=== PATIENT | female | born 1995 | race American Indian/Alaskan Native ===

== ENCOUNTER 2018-08-28 15:30 | Outpatient (CLI) | payer MEDICAID ==
[2018-08-28] MEDS ORDERED: LACTATED RINGERS 500 ML IV ONE (15:32)
[2018-08-28 15:46] VITALS: BP 116/68
[2018-08-28 17:17] LABS: Bilirubin,Urine NEG (Negative); Blood,Urine NEG (Negative); Color,Urine Yellow (Yellow); Mucus,Urine FEW /HPF; Protein,Urine <15 mg/dL mg/dL (Negative); Urobilinogen,Urine < 2.0 mg/dL (<2.0)
== END 2018-08-28 18:00 | disposition home or self-care (01) ==
LOC: TRG 15:30
PROVIDERS: ATTEND Obstetrics & Gynecology
DX: O47.02 False labor before 37 completed weeks of gestation, second trimester (principal); Z3A.26 26 weeks gestation of pregnancy
CPT/HCPCS: 81001; 87086

== ENCOUNTER 2018-12-01 16:47 | Outpatient (CLI) | payer MEDICAID ==
[2018-12-01 20:22] VITALS: BP 138/71
== END 2018-12-01 21:08 | disposition home or self-care (01) ==
LOC: TRG 16:47
PROVIDERS: ATTEND Obstetrics & Gynecology
DX: O47.1 False labor at or after 37 completed weeks of gestation (principal); Z3A.40 40 weeks gestation of pregnancy
CPT/HCPCS: 59025

== ENCOUNTER 2018-12-02 11:24 | Inpatient (IN) | payer MEDICAID ==
[2018-12-02] MEDS ORDERED: PITOCin/NS 30 UNIT/500ML 30,000 MILLIUNITS/500 ML BAG IV ONE (11:41)
[2018-12-02] MEDS ORDERED: PHENERGAN PO PRN ×2 (12:46→19:51)
[2018-12-02] MEDS ORDERED: BRETHINE IVP PRN (12:46)
[2018-12-02] MEDS ORDERED: MINERAL OIL PO PRN (12:46)
[2018-12-02] MEDS ORDERED: ZOFRAN IV PRN ×2 (12:46→19:51)
[2018-12-02] MEDS ORDERED: NARCAN 0.4 MG/1 ML IV PRN (12:46)
[2018-12-02] MEDS ORDERED: BRETHINE SUB-Q PRN (12:46)
[2018-12-02] MEDS ORDERED: STADOL IV PRN (12:46)
[2018-12-02] MEDS ORDERED: NUBAIN IV PRN (12:46)
[2018-12-02] MEDS ORDERED: SUBLIMAZE IV PRN (12:46)
[2018-12-02] MEDS ORDERED: XYLOCAINE 2% INFILTRATI ONE ×2 (12:46→19:28)
[2018-12-02 12:57] LABS: Hematocrit 34.8 % (30.3-42.9); Hemoglobin 11.9 gm/dl (10.1-14.3); Mean Corpuscular HGB Conc 34 % (30-34); Mean Corpuscular Volume 87 fl (79-97); Platelet Count 263 K/mm3 (140-440); Red Cell Distribution Width 13.7 % (13.2-15.2)
[2018-12-02] MEDS ORDERED: PITOCin/NS 20 UNIT/1000ML DRIP 20 UNITS/1,000 ML BAG IV SCH ×2 (13:00→20:00)
[2018-12-02] MEDS ORDERED: PITOCin/NS 30 UNIT/500ML 30 UNITS/500 ML BAG IV SCH ×2 (13:00)
[2018-12-02] MEDS: LACTATED RINGERS 1,000 ML IV SCH ×2 (13:15→16:08)
[2018-12-02] MEDS ORDERED: MARCAINE 0.25% INFILTRATI ONE (15:11)
[2018-12-02] MEDS ORDERED: NARCAN 2 MG/2 ML IV PRN (15:35)
--- NOTE | 2018-12-02 15:35 | Anesthesia Consultation ---
Anesthesia Consult and Med Hx Date of service: 12/02/18 - Airway Anesthetic Teeth Evaluation: Good ROM Head & Neck: Adequate Mental/Hyoid Distance: Adequate Mallampati Class: Class II Intubation Access Assessment: Good - Pulmonary Exam CTA: Yes - Cardiac Exam Cardiac Exam: RRR - Pre-Operative Health Status ASA Pre-Surgery Classification: ASA2 Proposed Anesthetic Plan: Epidural - Pulmonary Hx Asthma: No COPD: No Hx Pneumonia: No - Cardiovascular System Hx Hypertension: No - Central Nervous System Hx Seizures: No Hx Psychiatric Problems: No - Endocrine Hx Renal Disease: No Hx End Stage Renal Disease: No Hx Hypothyroidism: No Hx Hyperthyroidism: No - Hematic Hx Anemia: No Hx Sickle Cell Disease: No - Other Systems Hx Alcohol Use: No
[2018-12-02] MEDS ORDERED: fentaNYL-BUPIV 2 MCG/ML-0.125% 200 MCG/100 ML BAG EPIDURAL SCH (16:00)
--- NOTE | 2018-12-02 17:12 | History and Physical Report ---
History of Present Illness Date of examination: 12/02/18 Date of admission: 12/02/18 11:24 Chief complaint: contractions and water broke History of present illness: This is a 23 yo EDC 11/30/18 here for contractions and srom. She was evaluated and noted to be grossly ruptured. She has a hx of baby asa for hx of GHTN. NIPT female. Patient is a patient of [facility] since 12 weeks. She is admitted in labor Past History Past Medical History: hypertension Past Surgical History: no surgical history Family/Genetic History: none Social history: single. denies: smoking, alcohol abuse, prescription drug abuse - Obstetrical History Expected Date of Delivery: 11/30/18 Actual Gestation: 40 Week(s) 2 Day(s) : 2 Para: 1 Hx # Term Pregnancies: 1 Number of Pregnancies: 0 Spontaneous Abortions: 0 Induced : 0 Number of Living Children: 1 Medications and Allergies Allergies Allergy/AdvReac Type Severity Reaction Status Date / Time No Known Allergies Allergy Verified 07/21/18 17:09 Active Meds: Active Medications Butorphanol Tartrate (Stadol) 2 mg IV Q2H PRN PRN Reason: Pain , Severe (7-10) Last Admin: 12/02/18 13:17 Dose: 2 mg Documented by: Ephedrine Sulfate (Ephedrine Sulfate) 10 mg IV Q2M PRN PRN Reason: Hypotension Fentanyl (Sublimaze) 100 mcg IV Q2H PRN PRN Reason: Labor Pain Oxytocin/Sodium Chloride (Pitocin/Ns 30 Unit/500ml) 30,000 milliunits in 500 mls @ 1 mls/hr IV DIRECT ONE; Protocol Stop: 12/23/18 07:40 Last Titration: 12/02/18 15:44 Dose: 0 milliunits/min, 0 mls/hr Documented by: Oxytocin/Sodium Chloride (Pitocin/Ns 20 Unit/1000ml Drip) 20 units in 1,000 mls @ 125 mls/hr IV DIRECT LOBO Oxytocin/Sodium Chloride (Pitocin/Ns 30 Unit/500ml) 30 units in 500 mls @ 1 ml s/hr IV TITR LOBO; Protocol Oxytocin/Sodium Chloride (Pitocin/Ns 30 Unit/500ml) 30 units in 500 mls @ 0 mls/hr IV TITR LOBO; Protocol Lactated Ringer's (Lactated Ringers) 1,000 mls @ 125 mls/hr IV DIRECT LOBO Last Admin: 12/02/18 16:08 Dose: 125 mls/hr Documented by: Fentanyl/Bupivacaine/Sodium Chlor (Fentanyl-Bupiv 2 Mcg/Ml-0.125%) 200 mcg in 100 mls @ 12 mls/hr EPIDURAL TITR LOBO; Protocol Last Admin: 12/02/18 16:10 Dose: 12 mls/hr Documented by: Mineral Oil (Mineral Oil) 30 ml PO QHS PRN PRN Reason: Constipation Nalbuphine HCl (Nubain) 10 mg IV Q2H PRN PRN Reason: Pain, Moderate (4-6) Naloxone HCl (Narcan 0.4 Mg/1 Ml) 0.1 mg IV Q2MIN PRN PRN Reason: Res Rate </= 8 or 02 SAT < 92% Naloxone HCl (Narcan 2 Mg/2 Ml) 0.2 mg IV Q5M PRN PRN Reason: Respiratory sedation Ondansetron HCl (Zofran) 4 mg IV Q8H PRN PRN Reason: Nausea And Vomiting Promethazine HCl (Phenergan) 25 mg PO Q6H PRN PRN Reason: Nausea And Vomiting Terbutaline Sulfate (Brethine) 0.25 mg SUB-Q ONCE PRN PRN Reason: Hyperstimulation/Hypertonicity Terbutaline Sulfate (Brethine) 0.25 mg IVP ONCE PRN PRN Reason: Hyperstimulation/Hypertonicity Review of Systems All systems: negative Genitourinary: leakage of fluid, contractions - Vital Signs Vital signs: Vital Signs Temp Resp 98.1 F 20 12/02/18 11:55 12/02/18 11:55 Temp Pulse Resp BP Pulse Ox 97.9 F 126 H 20 131/82 100 12/02/18 15:00 12/02/18 17:04 12/02/18 15:00 12/02/18 16:54 12/02/18 17:04 - Physical Exam Breasts: Positive: deferred Cardiovascular: Regular rate, Normal S1 Lungs: Positive: Clear to auscultation, Normal air movement Abdomen: Positive: normal appearance, soft, normal bowel sounds. Negative: distention, tenderness, guarding Genitourinary (Female): Positive: normal external genitalia, normal perenium Vulva: both: normal Vagina: Positive: normal moisture Uterus: Positive: normal size, enlarged Adnexa: both: normal Anus/Rectum: Positive: normal perianal skin Extremities: Positive: normal. Negative: tenderness - Obstetrical FHR: category 1 Cervical Dilatation: 8 Cervical Effacement Percentage: 90 station: -2 Uterine Contraction Pattern: Regular Results Result Diagrams: 12/02/18 12:35 All other labs normal. Assessment and Plan A/P IUP 40+2 weeks Term Active labor GBS neg s/p epidural IVF, labs expect vaginal delivery
[2018-12-02] MEDS ORDERED: CYTOTEC PR ONE (19:20)
[2018-12-02] MEDS ORDERED: METHERGINE IM ONE ×2 (19:20→19:23)
[2018-12-02] MEDS ORDERED: CYTOTEC ONE (19:25)
[2018-12-02] MEDS ORDERED: LANSINOH TP PRN (19:51)
[2018-12-02] MEDS ORDERED: MILK OF MAGNESIA PO PRN (19:51)
[2018-12-02] MEDS ORDERED: PERCOCET 5/325 PO PRN (19:51)
[2018-12-02] MEDS ORDERED: PHENERGAN PR PRN (19:51)
[2018-12-02] MEDS ORDERED: BENADRYL PO PRN (19:51)
[2018-12-02] MEDS ORDERED: TYLENOL PO PRN (19:51)
[2018-12-02] MEDS ORDERED: TUCKS PAD TP PRN (19:51)
[2018-12-02] MEDS ORDERED: DULCOLAX PR PRN (19:51)
[2018-12-02] MEDS ORDERED: TORADOL IV PRN (19:51)
--- NOTE | 2018-12-02 19:55 | Procedure Note ---
OB Delivery Note - Delivery Date of Delivery: 12/02/18 Surgeon: MARY BLANKENSHIP Estimated blood loss: 500cc - Vaginal Delivery presentation: vertex Delivery position: OA Delivery augmentation: pitocin Delivery monitor: external FHT, external uterine Route of delivery: Delivery placenta: spontaneous Delivery cord: 3 umbilical vessels Episiotomy: none Delivery laceration: 1st degree Delivery repair: vicryl Anesthesia: local, epidural Delivery comments: Patient was noted to be c/c/+1 commenced to pushing a pushed a viable female at 1913. The head was delivered and suction naso and oropharynx. The shoulders delivered easily. The cord was clamped and cut and placed baby on chest. The placenta delivered at 1914 intact with 3 vessel cord. Patient sustained EBL 500 cc and methergine and cytotec given for great hemostasis. Patient tolerated procedure well. repair of bilateral laceration in normal usual way of 2-0 and 3-0 vicryl. - Infant A at 1 minute: 8 at 5 minutes: 9 Infant Gender: Female (8 pounds 1 oz)
[2018-12-02] MEDS ORDERED: SODIUM CHLORIDE FLUSH SYRINGE 10 ML IV NR (20:00)
[2018-12-02] MEDS: IBUPROFEN PO SCH (21:08)
[2018-12-02] MEDS: SENOKOT S PO SCH (22:34)
[2018-12-02] MEDS: COLACE PO SCH (22:34)
[2018-12-02] MEDS: NORCO 5/325 PO PRN (22:35)
[2018-12-03] MEDS ORDERED: M-M-R II VACCINE SUB-Q ONE (06:00)
[2018-12-03] MEDS ORDERED: BOOSTRIX IM ONE (06:00)
[2018-12-03] MEDS: NORCO 5/325 PO PRN ×3 (06:03→21:40)
[2018-12-03] MEDS: IBUPROFEN PO SCH ×3 (06:10→18:37)
--- NOTE | 2018-12-03 08:03 | Progress Note ---
Assessment and Plan 1. day 1 2. Labs wnl. One elevated BP at 0416 today 3. Pain well controlled 4. Plan: 1. Continue current care 2. Reevaluate BP now 3. Consider D/C tomorrow Subjective - Subjective Date of service: 12/03/18 Principal diagnosis: day 1 Patient reports: appetite normal, voiding normally, pain well controlled : doing well () Objective - Vital Signs Latest vital signs: Vital Signs Temp Pulse Resp BP Pulse Ox 12/03/18 06:10 18 12/03/18 06:03 18 12/03/18 04:16 98.0 F 96 H 18 149/85 98 12/02/18 23:21 99.2 F 109 H 18 120/63 97 12/02/18 22:35 18 12/02/18 21:27 102.2 F H 104 H 20 144/77 98 12/02/18 20:36 98 H 98 12/02/18 20:31 103 H 99 12/02/18 20:26 104 H 99 12/02/18 20:25 107 H 0 L 12/02/18 20:24 111 H 124/85 12/02/18 20:12 120 H 94 12/02/18 20:07 112 H 99 12/02/18 19:59 112 H 73 L 12/02/18 19:54 109 H 129/63 12/02/18 19:46 122 H 96 12/02/18 19:41 119 H 99 12/02/18 19:36 113 H 99 12/02/18 19:31 113 H 100 12/02/18 19:25 119 H 100 12/02/18 19:24 125 H 119/59 12/02/18 19:22 120 H 129/81 12/02/18 19:21 121 H 100 12/02/18 19:16 121 H 100 12/02/18 19:14 71 76 L 12/02/18 19:10 120 H 100 12/02/18 19:04 107 H 100 12/02/18 19:00 115 H 100 12/02/18 18:55 101 H 148/79 12/02/18 18:54 110 H 100 12/02/18 18:50 103 H 100 12/02/18 18:44 110 H 100 12/02/18 18:40 112 H 141/74 100 12/02/18 18:34 105 H 100 06 18:29 107 H 100 12/02/18 18:26 111 H 140/79 06 18:25 124 H 100 06 18:19 93 H 100 06 18:15 96 H 100 12/02/18 18:10 90 135/63 06 18:09 98 H 100 12/02/18 18:04 104 H 100 12/02/18 17:59 100 H 100 12/02/18 17:56 115 H 127/56 12/02/18 17:54 114 H 100 12/02/18 17:49 96 H 100 12/02/18 17:44 111 H 100 12/02/18 17:39 107 H 150/92 100 12/02/18 17:34 118 H 100 12/02/18 17:29 112 H 100 12/02/18 17:25 104 H 134/80 12/02/18 17:24 109 H 100 12/02/18 17:19 100 H 100 12/02/18 17:14 100 H 100 12/02/18 17:09 114 H 145/88 100 12/02/18 17:04 126 H 100 12/02/18 16:59 99 H 100 12/02/18 16:54 108 H 131/82 100 12/02/18 16:49 99 H 100 12/02/18 16:44 94 H 100 12/02/18 16:39 97 H 125/71 100 12/02/18 16:34 99 H 100 12/02/18 16:29 105 H 100 12/02/18 16:24 107 H 100 12/02/18 16:23 99 H 123/64 12/02/18 16:19 90 120/65 100 12/02/18 16:14 98 H 134/68 100 12/02/18 16:09 109 H 100 12/02/18 16:07 81 130/60 12/02/18 16:06 96 H 126/61 12/02/18 16:04 94 H 144/64 100 12/02/18 16:01 114 H 129/64 12/02/18 15:59 110 H 136/68 100 12/02/18 15:58 111 H 124/65 12/02/18 15:56 112 H 114/63 06/04/19 15:54 111 H 100 12/02/18 15:53 106 H 132/77 12/02/18 15:52 100 H 137/79 12/02/18 15:50 112 H 125/72 12/02/18 15:49 111 H 100 12/02/18 15:48 89 144/82 12/02/18 15:44 92 H 100 12/02/18 15:43 77 97/53 12/02/18 15:41 75 96/51 12/02/18 15:39 97 H 98/52 100 12/02/18 15:37 99 H 107/55 12/02/18 15:35 108 H 111/57 12/02/18 15:34 103 H 100 12/02/18 15:33 96 H 111/59 12/02/18 15:31 104 H 114/60 12/02/18 15:30 102 H 120/63 12/02/18 15:29 102 H 100 12/02/18 15:27 97 H 135/71 12/02/18 15:25 95 H 138/67 12/02/18 15:24 98 H 100 12/02/18 15:23 87 147/76 12/02/18 15:22 86 142/75 12/02/18 15:19 91 H 99 12/02/18 15:14 56 L 76 L 12/02/18 15:00 97.9 F 20 12/02/18 14:44 80 133/76 12/02/18 14:15 96 H 144/85 12/02/18 13:45 96 H 130/73 12/02/18 13:17 20 12/02/18 12:10 106 H 134/73 12/02/18 11:55 98.1 F 20 Intake and Output 12/02/18 12/03/18 12/03/18 23:59 07:59 15:59 Intake Total 365.550 240 Output Total 1200 Balance 365.550 -960 Intake: IV 365.550 Lactated Ringers 1,000 ml 360.417 @ 125 mls/hr IV DIRECT LOBO Rx#:[id number] PITOCin/NS 30 UNIT/500ML 5.133 30,000 milliunits In 500 ml @ 1 MILLIUNITS/MIN 1 mls/hr IV DIRECT ONE Rx#:[id number] Oral 240 Output: Urine 1200 Void 1200 Other: Total, Intake Amount 240 Total, Output Amount 600 # Voids Void 1 Estimated Blood Loss 500 - Exam Breasts: Present: deferred Cardiovascular: Present: Regular rate, Normal S1, Normal S2, No murmurs Lungs: Present: Clear to auscultation, Normal air movement Abdomen: Present: normal appearance Uterus: Present: normal, firm, fundal height below umbilicus Extremities: Present: normal
[2018-12-03 09:15] LABS: Hematocrit 30.1 % (30.3-42.9); Hemoglobin 10.3 gm/dl (10.1-14.3)
[2018-12-03] MEDS: PRENATAL VITAMIN PO SCH (09:31)
[2018-12-03] MEDS: COLACE PO SCH ×2 (09:31→21:40)
[2018-12-03] MEDS: SENOKOT S PO SCH ×2 (09:34→21:40)
--- NOTE | 2018-12-03 20:05 | Post Anesthesia Evaluation ---
- Post Anesthesia Evaluation Patient Participated: Yes Airway Patent: Yes Stable Respiratory Function: Yes Nausea/Vomiting: No Temp > 96.8F: Yes Pain Manageable: Yes Adequeate Hydration: Yes Anesthesia Complications: No Block Receding Appropriately: Yes Patient on Ventilator: No
[2018-12-04] MEDS: IBUPROFEN PO SCH ×3 (04:45→12:06)
[2018-12-04] MEDS: NORCO 5/325 PO PRN (05:00)
--- NOTE | 2018-12-04 08:28 | Discharge Summary ---
Providers - Providers Date of Admission: 12/02/18 11:24 Date of discharge: 12/04/18 Attending physician: MARY BLANKENSHIP MD Primary care physician: MARY BLANKENSHIP MD Hospitalization Reason for admission: active labor, rupture of membranes Delivery: Episiotomy: none Laceration: 1st degree Other procedures: none complications: none Discharge diagnosis: IUP at term delivered Condition at discharge: Good Disposition: DC-01 TO HOME OR SELFCARE - Discharge Diagnoses (1) Normal vaginal delivery Status: Acute Plan - Discharge Medications Prescriptions: Ferrous Sulfate [Feosol 325 MG tab] 325 mg PO BID #30 tablet Ibuprofen [Motrin] 600 mg PO Q8H PRN #30 tablet PRN Reason: Pain oxyCODONE /ACETAMINOPHEN [Percocet 5/325] 1 tab PO Q6HR PRN #30 tablet PRN Reason: Pain - Provider Discharge Summary Activity: no sex for 6 weeks, no heavy lifting 4 weeks, no strenuous exercise Diet: routine Additional instructions: [] Smoking cessation referral if applicable(refer to patient education folder for contact #) [] Refer to [facility]'s [facility] Booklet Call your doctor immediately for: * Fever > 100.5 * Heavy vaginal bleeding ( >1 pad per hour) * Severe persistent headache * Shortness of breath * Reddened, hot, painful area to leg or breast * Drainage or odor from incision. * Keep incision clean and dry at all times and follow doctor's instructions regarding bathing/showering Call [place] [phone] to schedule blood pressure check in 1 week - Follow up plan Forms: [facility] Discharge Summary, Discharge Signature Page
--- NOTE | 2018-12-04 08:30 | Progress Note ---
Assessment and Plan 1. PPD2 s/p of viable 2. Recovering well, ok for discharge today Plan: Discharge today. Follow up with [facility] in 1 week for BP check ant 4 weeks for pp visit - Patient Problems (1) Normal vaginal delivery Current Visit: Yes Status: Acute Subjective - Subjective Date of service: 12/04/18 Principal diagnosis: day 2 Patient reports: appetite normal, voiding normally, pain well controlled, bowel movement, ambulating normally [place]: doing well Objective - Vital Signs Latest vital signs: Vital Signs Temp Pulse Resp BP Pulse Ox 12/04/18 08:05 97.8 F 87 18 137/82 12/04/18 00:30 98.3 F 68 20 128/73 98 12/03/18 15:56 98.1 F 106 H 18 136/73 98 12/03/18 12:57 97.9 F 90 18 132/83 99 Intake and Output 12/03/18 12/04/18 12/04/18 23:59 07:59 15:59 Intake Total 1160 240 360 Balance 1160 240 360 Intake: Oral 1160 240 360 Other: Total, Intake Amount 360 240 360 Voiding Method Toilet # Voids Void 1 1 # Bowel Movements 1 - Exam Breasts: Present: deferred Cardiovascular: Present: Regular rate, Normal S1, Normal S2, No murmurs Lungs: Present: Clear to auscultation, Normal air movement Abdomen: Present: normal appearance, soft Uterus: Present: normal, firm, fundal height below umbilicus Extremities: Present: normal - Labs Labs: Abnormal lab results 12/03/18 Range/Units 08:43 Hct 30.1 L (30.3-42.9) %
[2018-12-04] MEDS: COLACE PO SCH (10:56)
[2018-12-04] MEDS: PRENATAL VITAMIN PO SCH (10:56)
[2018-12-04] MEDS: SENOKOT S PO SCH (10:56)
[2018-12-04 18:09] VITALS: BP 149/85
== END 2018-12-04 18:30 | disposition home or self-care (01) | DRG 775 ==
LOC: LD 11:24 → OB 21:50
PROVIDERS: ADMIT Obstetrics & Gynecology; ATTEND Obstetrics & Gynecology
PROC: 10E0XZZ Delivery of Products of Conception, External Approach (ICD-10-PCS; principal; 2018-12-02)
PROC: 0HQ9XZZ Repair Perineum Skin, External Approach (ICD-10-PCS; 2018-12-02)
PROC: 3E0R3BZ Introduction of Anesthetic Agent into Spinal Canal, Percutaneous Approach (ICD-10-PCS; 2018-12-02)
PROC: 00HU33Z Insertion of Infusion Device into Spinal Canal, Percutaneous Approach (ICD-10-PCS; 2018-12-02)
PROC: 3E0234Z Introduction of Serum, Toxoid and Vaccine into Muscle, Percutaneous Approach (ICD-10-PCS; 2018-12-03)
DX: O70.0 First degree perineal laceration during delivery (principal); Z3A.40 40 weeks gestation of pregnancy; Z37.0 Single live birth; Z23 Encounter for immunization
CPT/HCPCS: 36415; 59025; 85014; 85018; 85027; 86592; 86850; 86900; 86901; 90471; 90715; G0378; J0595; J2210; J2590; J3010; J7120

== ENCOUNTER 2019-03-17 08:53 | Day surgery (SDC) | payer MEDICAID ==
[2019-03-17] MEDS ORDERED: LACTATED RINGERS 1,000 ML IV SCH (09:16)
[2019-03-17] MEDS ORDERED: ZOFRAN IV PRN (09:29)
[2019-03-17] MEDS ORDERED: SUBLIMAZE IV PRN (09:29)
--- NOTE | 2019-03-17 09:33 | Anesthesia Day of Surgery ---
Anesthesia Day of Surgery - Day of Surgery Patient Examined: Yes Patient H&P Reviewed: Yes Patient is NPO: Yes
--- NOTE | 2019-03-17 09:34 | Anesthesia Consultation ---
Anesthesia Consult and Med Hx Date of service: 03/17/19 - Airway Anesthetic Teeth Evaluation: Good ROM Head & Neck: Adequate Mental/Hyoid Distance: Adequate Mallampati Class: Class II Intubation Access Assessment: Good - Pre-Operative Health Status ASA Pre-Surgery Classification: ASA1 Proposed Anesthetic Plan: General - Central Nervous System Hx Psychiatric Problems: No - Other Systems Hx Cancer: No
[2019-03-17] MEDS ORDERED: VERSED ONE (11:29)
[2019-03-17] MEDS ORDERED: XYLOCAINE MPF 2% ONE (11:29)
[2019-03-17] MEDS ORDERED: SUBLIMAZE ONE (11:29)
[2019-03-17] MEDS ORDERED: DIPRIVAN 10 MG/ML IV ONE (11:30)
[2019-03-17] MEDS ORDERED: SILVER NITRATE TP ONE (11:38)
[2019-03-17] MEDS ORDERED: METHERGINE IM ONE ×2 (11:38→12:17)
[2019-03-17 12:11] LABS: Basophils % (Auto) 0.5 % (0.0-1.8); Eosinophils % (Auto) 0.7 % (0.0-4.3); Hematocrit 37.8 % (30.3-42.9); Hemoglobin 12.6 gm/dl (10.1-14.3); Lymphocytes # (Auto) 1.5 K/mm3 (1.2-5.4); Mean Corpuscular HGB Conc 33 % (30-34); Mean Corpuscular Volume 85 fl (79-97); Monocytes # (Auto) 0.4 K/mm3 (0.0-0.8); Platelet Count 294 K/mm3 (140-440); Red Blood Count 4.44 M/mm3 (3.65-5.03); Red Cell Distribution Width 14.5 % (13.2-15.2)
[2019-03-17] MEDS ORDERED: ZOFRAN ONE (12:12)
[2019-03-17] MEDS ORDERED: TORADOL ONE (12:12)
[2019-03-17] MEDS ORDERED: DECADRON ONE (12:12)
[2019-03-17] MEDS ORDERED: REGLAN ONE (12:12)
[2019-03-17] MEDS ORDERED: NACL 0.9% IR ONE (12:14)
--- NOTE | 2019-03-17 12:29 | Operative Report ---
Operative Report Operative Report: Date:03/17/19 PREOPERATIVE DIAGNOSIS: Missed . POSTOPERATIVE DIAGNOSIS: Missed . PROCEDURE PERFORMED: Suction, dilation, and curettage. ANESTHESIA: General ESTIMATED BLOOD LOSS: 50 mL. COMPLICATIONS: None. FINDINGS: Products of conception consistent with a 6-week intrauterine . INDICATIONS: The patient is a 24-year-old 3, para 2 female at 6 weeks by her last menstrual period and 6 weeks by an ultrasound previously saw no cardiac activity. Patietn had 2 previous US without FHT. patient counseled and desired dilatation and currettage Additionally, the cervix was noted to be 1 cm dilated. These findings were discussed with the patient and options including surgical management via dilation and curettage versus management with misoprostol versus expected management were discussed with the patient. After discussion of these options, the patient opted for a suction, dilation, and curettage. The patient was described to the patient in detail including risks of infection, bleeding, injury to surrounding organs including risk of perforation. Informed consent was obtained prior to proceeding with the procedure. PROCEDURE NOTE: The patient was taken to the operating room where spinal anesthesia was administered without difficulty. The patient was prepped and draped in usual sterile fashion in lithotomy position. A weighted speculum was placed. The anterior lip of the cervix was grasped with a single tooth tenaculum. At this time, a 7-mm suction curettage was advanced into the uterine cavity without difficulty and was used to suction contents of the uterus. Following removal of the products of conception, a sharp curette was advanced into the uterine cavity and was used to scrape the four charles of the uterus until a gritty texture was noted. At this time, the suction curette was advanced one additional time to suction any remaining products. All instruments were removed. Hemostasis was visualized. The patient was stable at the completion of the procedure. Sponge, lap, and instrument counts were correct.
[2019-03-17] MEDS ORDERED: PERCOCET 5/325 PO PRN (13:21)
--- NOTE | 2019-03-17 13:30 | Post Anesthesia Evaluation ---
- Post Anesthesia Evaluation Patient Participated: Yes Airway Patent: Yes Stable Respiratory Function: Yes Nausea/Vomiting: No Temp > 96.8F: Yes Pain Manageable: Yes Adequeate Hydration: Yes Anesthesia Complications: No Block Receding Appropriately: Not Applicable Patient on Ventilator: No
[2019-03-17 14:24] VITALS: BP 122/59
== END 2019-03-17 08:54 | disposition home or self-care (01) ==
LOC: OR 08:53
PROVIDERS: ATTEND Obstetrics & Gynecology
DX: O02.1 Missed abortion (principal); Z79.899 Other long term (current) drug therapy; Z98.890 Other specified postprocedural states; Z83.3 Family history of diabetes mellitus; Z82.49 Family history of ischemic heart disease and other diseases of the circulatory system
CPT/HCPCS: 36415; 59820; 85025; 86850; 86900; 86901; 88305; J1100; J1885; J2210; J2250; J2405; J2704; J2765; J3010; J7120

== ENCOUNTER 2021-05-01 10:33 | Emergency (ER) | payer MEDICAID ==
--- NOTE | 2021-05-01 13:39 | Emergency Department Report ---
ED HPI - General Chief complaint: Vaginal Bleeding Stated complaint: 7WKS /BLEEDING/CRAMPING Time Seen by Provider: 05/01/21 13:16 Source: patient Mode of arrival: Ambulatory Limitations: No Limitations - History of Present Illness Initial comments: The patient was evaluated in the emergency department for symptoms described in the history of present illness. He/she was evaluated in the context of the global COVID-19 pandemic, which necessitated consideration that the patient might be at risk for infection with the virus that causes COVID-19. Institutional protocols and algorithms that pertain to the evaluation of patients at risk for COVID-19 are in a state of rapid change based on information released by regulatory bodies including the CDC and federal and state organizations. These policies and algorithms were followed during the patient's care in the emergency department. Please note that these policies, procedures and recommendations changed on a rapid basis. 26-year-old -[place] female who is approximately 7 weeks presents to the emergency room for vaginal spotting that happened last night at 8 PM. She reports some mild cramping. She is 5 para 2 with 2 miscarriages. Her last menstrual period was 03/13/2021. She has not had an ultrasound done. She states that she has gone through 1 pad with 1 little clot. She denies any complications with her last she did have a miscarriage at 10 weeks after having her 2-year-old. Complaint: vaginal bleeding Onset/Timin -: days(s) Radiation: back Severity: mild Severity scale (0 -10): 3 Quality: cramping Consistency: intermittent Improves with: none Worsens with: none - Related Data Previous Rx's Medication Instructions Recorded Last Taken Type Ibuprofen [Motrin] 600 mg PO Q8H PRN #30 tablet 03/17/19 Unknown Rx oxyCODONE /ACETAMINOPHEN [Percocet 1 tab PO Q6HR PRN #20 tablet 03/17/19 Unknown Rx 5/325] Vit-Fe Fumar-FA [ 1 tab PO QDAY #90 tablet 05/01/21 Unknown Rx Vitamin] Allergies Allergy/AdvReac Type Severity Reaction Status Date / Time No Known Allergies Allergy Verified 03/16/19 14:24 ED Review of Systems ROS: Stated complaint: 7WKS /BLEEDING/CRAMPING Other details as noted in HPI ED Past Medical Hx - Past Medical History Previous Medical History?: No - Surgical History Past Surgical History?: Yes Additional Surgical History: d&c 2019 - Social History Smoking Status: Never Smoker - Medications Home Medications: Home Medications Medication Instructions Recorded Confirmed Last Taken Type Ibuprofen [Motrin] 600 mg PO Q8H PRN #30 tablet 03/17/19 Unknown Rx oxyCODONE /ACETAMINOPHEN [Percocet 1 tab PO Q6HR PRN #20 tablet 03/17/19 Unknown Rx 5/325] Vit-Fe Fumar-FA [ 1 tab PO QDAY #90 tablet 05/01/21 Unknown Rx Vitamin] ED Physical Exam - General Limitations: No Limitations General appearance: alert, in no apparent distress - Head Head exam: Present: atraumatic, normocephalic - Eye Eye exam: Present: normal appearance - ENT ENT exam: Present: mucous membranes moist - Neck Neck exam: Present: normal inspection - Respiratory Respiratory exam: Present: normal lung sounds bilaterally. Absent: respiratory distress - Cardiovascular Cardiovascular Exam: Present: regular rate, normal rhythm. Absent: systolic murmur, diastolic murmur, rubs, gallop - GI/Abdominal GI/Abdominal exam: Present: soft, normal bowel sounds - Extremities Exam Extremities exam: Present: normal inspection - Back Exam Back exam: Present: normal inspection - Neurological Exam Neurological exam: Present: alert, oriented X3 - Psychiatric Psychiatric exam: Present: normal affect, normal mood - Skin Skin exam: Present: warm, dry, intact, normal color. Absent: rash ED Course Vital Signs 05/01/21 13:05 Temperature 98.6 F Pulse Rate 104 H Respiratory 18 Rate Blood Pressure 152/82 O2 Sat by Pulse 98 Oximetry ED Medical Decision Making - Lab Data Result diagrams: 05/01/21 13:32 05/01/21 13:32 Laboratory Tests 05/01/21 05/01/21 05/01/21 13:32 13:32 13:32 WBC 5.4 RBC 4.26 Hgb 13.1 Hct 37.9 MCV 89 MCH 31 MCHC 35 H RDW 12.8 L Plt Count 289 Lymph % (Auto) 30.4 [place] % (Auto) 5.8 Eos % (Auto) 0.3 Baso % (Auto) 0.6 Lymph # (Auto) 1.6 [place] # (Auto) 0.3 Eos # (Auto) 0.0 Baso # (Auto) 0.0 Seg Neutrophils % 62.9 Seg Neutrophils # 3.4 Sodium 138 Potassium 4.0 Chloride 102.2 Carbon Dioxide 23 Anion Gap 17 BUN 14 Creatinine 0.6 Estimated GFR > 60 BUN/Creatinine Ratio 23 Glucose 82 Calcium 8.8 Total Bilirubin 0.30 AST 17 ALT 23 Alkaline Phosphatase 99 Total Protein 8.1 Albumin 4.0 Albumin/Globulin Ratio 1.0 HCG, Quant 425.5 H Urine Color Urine Turbidity Urine pH Ur Specific [place] Urine Protein Urine Glucose (UA) Urine Ketones Urine Blood Urine Nitrite Urine Bilirubin Urine Urobilinogen Ur Leukocyte Esterase Urine WBC (Auto) Urine RBC (Auto) U Epithel Cells (Auto) Urine Bacteria (Auto) Urine Mucus Blood Type Gest05/01/21 05/01/21 15:00 Unknown WBC RBC Hgb Hct MCV MCH MCHC RDW Plt Count Lymph % (Auto) [place] % (Auto) Eos % (Auto) Baso % (Auto) Lymph # (Auto) [place] # (Auto) Eos # (Auto) Baso # (Auto) Seg Neutrophils % Seg Neutrophils # Sodium Potassium Chloride Carbon Dioxide Anion Gap BUN Creatinine Estimated GFR BUN/Creatinine Ratio Glucose Calcium Total Bilirubin AST ALT Alkaline Phosphatase Total Protein Albumin Albumin/Globulin Ratio HCG, Quant Urine Color Yellow Urine Turbidity Clear Urine pH 6.0 Ur Specific [place] 1.028 Urine Protein 30 mg/dl Urine Glucose (UA) Neg Urine Ketones 20 Urine Blood Lg Urine Nitrite Neg Urine Bilirubin Neg Urine Urobilinogen < 2.0 Ur Leukocyte Esterase Neg Urine WBC (Auto) 3.0 Urine RBC (Auto) 34.0 U Epithel Cells (Auto) 5.0 Urine Bacteria (Auto) 1+ Urine Mucus 3+ Blood Type A POSITIVE Ord pos - Radiology Data Radiology results: report reviewed [facility] [address] [place] [address] Ultrasound Report Signed Patient: FRANCINE MONROE MR #: [id number] : 1995 Acct:[id number] Age/Sex: 26 / F ADM Date: 05/01/21 Loc: ED Attending Dr: Ordering Physician: ABHIJIT NORTON Date of Service: 05/01/21 Procedure(s): US OB transvaginal Accession Number(s): [id number] cc: ABHIJIT NORTON ULTRASOUND OB TRANSVAGINAL HISTORY: Vaginal cramping and spotting COMPARISON: None. TECHNIQUE: Routine transvaginal OB ultrasound performed. FINDINGS: Uterus: The uterus is retroflexed and measures 9.1 x 5.0 x 5.6 cm. Gestational Sac: Not seen Yolk Sac: Not seen Fetus/Embryo: Not seen Endometrium: The endometrium appears mildly thickened and heterogeneous measuring 1.2 cm. Ovaries: The right ovary is normal in size and appearance with normal blood flow, measuring 4.4 x 0.9 x 2.9 cm. The left ovary is normal in size and appearance with normal blood flow, measuring 3.4 x 1.4 x 1.9 cm. No obvious adnexal lesion. Additional findings: None. IMPRESSION No intrauterine is visualized on transvaginal exam. The endometrium is mildly thickened and complex measuring 1.2 cm. This could represent a very early nonvisualized . Spontaneous with mild retained products could also be considered. Please note that an ectopic is not entirely excluded on this exam. Please correlate with the patient's clinical presentation and laboratory values. Signer Name: Randal Shultz Jr, MD Signed: 05/01/2021 3:16 PM Workstation Name: [id number] Transcribed By: TTR Dictated By: RANDAL SHULTZ JR, MD Electronically Authenticated By: RANDAL SHULTZ JR, MD Signed Date/Time: 05/01/211515 DD/ 11 TD/TT: - Medical Decision Making 26-year-old -[place] female who is approximately 7 weeks presents to the emergency room for vaginal spotting that happened last night at 8 PM. She reports some mild cramping. She is 5 para 2 with 2 miscarriages. Her last menstrual period was 03/13/2021. She has not had an ultrasound done. She states that she has gone through 1 pad with 1 little clot. She denies any complications with her last she did have a miscarriage at 10 weeks after having her 2-year-old. CBC CMP hCG serum urinalysis ultrasound less than 14 weeks and ED RhoGam Critical care attestation.: If time is entered above; I have spent that time in minutes in the direct care of this critically ill patient, excluding procedure time. ED Disposition Clinical Impression: Threatened miscarriage in early Disposition: HOME / SELF CARE / HOMELESS Is pt being admited?: No Does the pt Need Aspirin: No Condition: Stable Instructions: Threatened Miscarriage, [id number] Additional Instructions: Ultrasound shows no intrauterine gestation as it may be too early into your . I do recommend that you repeat hCG in 3 days. Also recommend follow-up with your [facility]. Urinalysis is negative for any urinary tract infection. I want you to take your vitamins increase your fluid and take. Prescriptions: Vit-Fe Fumar-FA [ Vitamin] 1 tab PO QDAY #90 tablet Referrals: ARJUN ROMO NP [Primary Care Provider] - 3-5 Days [facility] [Provider Group] - 3-5 Days Forms: Work/School Release Form(ED) Time of Disposition: 17:10
[2021-05-01 13:55] LABS: Basophils % (Auto) 0.6 % (0.0-1.8); Eosinophils % (Auto) 0.3 % (0.0-4.3); Hematocrit 37.9 % (30.3-42.9); Hemoglobin 13.1 gm/dl (10.1-14.3); Lymphocytes # (Auto) 1.6 K/mm3 (1.2-5.4); Lymphocytes % (Auto) 30.4 % (13.4-35.0); Mean Corpuscular HGB Conc 35 % (30-34); Mean Corpuscular Volume 89 fl (79-97); Monocytes # (Auto) 0.3 K/mm3 (0.0-0.8); Monocytes % (Auto) 5.8 % (0.0-7.3); Platelet Count 289 K/mm3 (140-440); Red Blood Count 4.26 M/mm3 (3.65-5.03); Red Cell Distribution Width 12.8 % (13.2-15.2)
[2021-05-01 14:13] LABS: Alanine Aminotransferase 23 units/L (7-56); Blood Urea Nitrogen 14 mg/dL (7-17); Calcium 8.8 mg/dL (8.4-10.2); Hemolysis Index 9
[2021-05-01 14:29] LABS: BUN/Creatinine Ratio 23
--- NOTE | 2021-05-01 15:20 | Ultrasound Report ---
ULTRASOUND OB TRANSVAGINAL HISTORY: Vaginal cramping and spotting COMPARISON: None. TECHNIQUE: Routine transvaginal OB ultrasound performed. FINDINGS: Uterus: The uterus is retroflexed and measures 9.1 x 5.0 x 5.6 cm. Gestational Sac: Not seen Yolk Sac: Not seen Fetus/Embryo: Not seen Endometrium: The endometrium appears mildly thickened and heterogeneous measuring 1.2 cm. Ovaries: The right ovary is normal in size and appearance with normal blood flow, measuring 4.4 x 0. 9 x 2.9 cm. The left ovary is normal in size and appearance with normal blood flow, measuring 3.4 x 1.4 x 1.9 cm. No obvious adnexal lesion. Additional findings: None. IMPRESSION No intrauterine is visualized on transvaginal exam. The endometrium is mildly thickened and complex measuring 1.2 cm. This could represent a very early nonvisualized . Spontaneous abo rtion with mild retained products could also be considered. Please note that an ectopic is not entirely excluded on this exam. Please correlate with the patient's clinical presentation and lab oratory values. Signer Name: Randal Shultz Jr, MD Signed: 05/01/2021 3:16 PM Workstation Name: [id number]
[2021-05-01 16:30] LABS: Bacteria,Urine 1+ /HPF (Negative); Bilirubin,Urine NEG (Negative); Blood,Urine LG (Negative); Color,Urine Yellow (Yellow); Mucus,Urine 3+ /HPF; Urobilinogen,Urine < 2.0 mg/dL (<2.0)
[2021-05-01 17:29] VITALS: BP 139/83
== END 2021-05-01 17:29 | disposition home or self-care (01) ==
LOC: ED 10:33
DX: O20.0 Threatened abortion (principal); Z3A.01 Less than 8 weeks gestation of pregnancy
CPT/HCPCS: 36415; 76801; 76817; 80053; 81001; 84702; 85025; 86900; 86901

== ENCOUNTER 2022-03-03 10:11 | Inpatient (IN) | payer MEDICAID ==
[2022-03-03] MEDS ORDERED: OXYTOCIN 10 UNIT/1 ML INJ IM PRN (12:04)
[2022-03-03] MEDS ORDERED: CARBOPROST TROMETHAMINE 250 MCG/1 ML INJ IM PRN (12:04)
[2022-03-03] MEDS ORDERED: LIDOCAINE (2%) 20 MG/1 ML VIAL 20 ML MDV INFILTRATI ONE (12:04)
[2022-03-03] MEDS ORDERED: miSOPROStol 200 MCG TAB PR PRN (12:04)
[2022-03-03] MEDS ORDERED: ePHEDrine SULFATE 50 MG/1 ML INJ IV PRN ×2 (12:04→16:23)
[2022-03-03] MEDS ORDERED: LOPERAMIDE 2 MG CAP PO PRN (12:04)
[2022-03-03] MEDS ORDERED: MINERAL OIL 30 ML ORAL LIQD PO PRN (12:04)
[2022-03-03] MEDS ORDERED: TERBUTALINE 1 MG/1 ML INJ SUB-Q PRN (12:04)
[2022-03-03] MEDS ORDERED: METHYLERGONOVINE MALEATE 0.2 MG/ML VIAL IM PRN (12:04)
[2022-03-03] MEDS ORDERED: fentaNYL 100 MCG/2 ML INJ IV PRN (12:08)
[2022-03-03] MEDS ORDERED: BUTORPHANOL 2 MG/1 ML INJ IV PRN (12:08)
[2022-03-03] MEDS ORDERED: ACETAMINOPHEN 325 MG TAB PO PRN ×2 (12:08→20:45)
[2022-03-03] MEDS ORDERED: ONDANSETRON 4 MG/2 ML INJ IV PRN ×2 (12:08→20:45)
[2022-03-03] MEDS ORDERED: LACTATED RINGERS 1,000 ML IV SCH (12:15)
[2022-03-03 12:20] LABS: Basophils % (Auto) 0.5 % (0.0-1.8); Eosinophils # (Auto) 0.1 K/mm3 (0.0-0.4); Eosinophils % (Auto) 0.7 % (0.0-4.3); Hematocrit 31.9 % (30.3-42.9); Hemoglobin 10.5 gm/dl (10.1-14.3); Lymphocytes # (Auto) 1.4 K/mm3 (1.2-5.4); Lymphocytes % (Auto) 18.7 % (13.4-35.0); Mean Corpuscular HGB Conc 33 % (30-34); Mean Corpuscular Volume 84 fl (79-97); Monocytes # (Auto) 0.6 K/mm3 (0.0-0.8); Platelet Count 323 K/mm3 (140-440); Red Blood Count 3.78 M/mm3 (3.65-5.03); Red Cell Distribution Width 14.7 % (13.2-15.2)
[2022-03-03] MEDS: OXYTOCIN DRIP 30 UNITS/500 ML BAG IV SCH ×4 (12:40→21:02)
[2022-03-03] MEDS ORDERED: OXYTOCIN DRIP 30 UNITS/500 ML BAG IV SCH (13:00)
[2022-03-03] MEDS ORDERED: fentaNYL-BUPIV 2 MCG/ML-0.125% 200 MCG/100 ML BAG EPIDURAL SCH (16:23)
[2022-03-03] MEDS ORDERED: NALOXONE 0.4 MG/1 ML INJ IV PRN (16:23)
--- NOTE | 2022-03-03 16:24 | Anesthesia Consultation ---
Anesthesia Consult and Med Hx Date of service: 03/03/22 - Airway Anesthetic Teeth Evaluation: Good ROM Head & Neck: Adequate Mental/Hyoid Distance: Adequate Mallampati Class: Class II Intubation Access Assessment: Probably Good - Pulmonary Exam CTA: Yes - Cardiac Exam Cardiac Exam: RRR - Pre-Operative Health Status ASA Pre-Surgery Classification: ASA2 Proposed Anesthetic Plan: Epidural - Pulmonary Hx Smoking: No Hx Asthma: No Hx Respiratory Symptoms: No SOB: No COPD: No Home Oxygen Therapy: No Hx Pneumonia: No Hx Sleep Apnea: No - Cardiovascular System Hx Hypertension: No Hx Coronary Artery Disease: No Hx Heart Attack/AMI: No Hx Angina: No Hx Percutaneous Transluminal Coronary Angioplasty (PTCA): No Hx Cardia Arrhythmia: No Hx Pacemaker: No Hx Internal Defibrillator: No Hx Valvular Heart Disease: No Hx Heart Murmur: No Hx Peripheral Vascular Disease: No - Central Nervous System Hx Neuromuscular Disorder: No Hx Seizures: No CVA: No Hx Back Pain: No Hx Psychiatric Problems: No - Gastrointestinal Hx Ulcer: No Hx Gastroesophageal Reflux Disease: No - Endocrine Hx Renal Disease: No Hx End Stage Renal Disease: No Hx Cirrhosis: No Hx Liver Disease: No Hx Insulin Dependent Diabetes: No Hx Non-Insulin Dependent Diabetes: No Hx Thyroid Disease: No Hx Hypothyroidism: No Hx Hyperthyroidism: No - Hematic Hx Anemia: No Hx Sickle Cell Disease: No - Other Systems Hx Alcohol Use: No Hx Substance Use: No Hx Cancer: No Hx Obesity: Yes
--- NOTE | 2022-03-03 16:25 | Anesthesia Day of Surgery ---
Anesthesia Day of Surgery - Day of Surgery Patient Examined: Yes Patient H&P Reviewed: Yes Patient is NPO: Yes Beta Blockers: No Cardiac Clearance: No Pulmonary Clearance: No Mukesh's Test: N/A
--- NOTE | 2022-03-03 17:01 | Progress Note ---
Labor Epidural - Labor Epidural Start Time: 16:06 Stop Time: 16:10 Performed by:: DAE GERARD Procedure: Epidural Requested for Labor Pain. H&P and PT Chart reviewed and consent obtained. Time out performed and the procedure was explained, all questions answered. Patient was placed in a sitting position with monitors applied. The PTs back was prepped and draped in usual sterile fashion. The Skin was localized with 3 mL of 1% lidocaine at L3-L4. A 17-gauge Touhy epidural needle was advanced to SUSAN with saline at 7 cm and no blood/CSF was noted via epidural needle. Epidural catheter was advanced to 12 cm. There was negative aspiration for blood and CSF in the catheter and negative response to a test dose of 3 ml 1.5% lidocaine w/ Epi and a sterile dressing was applied Patient tolerated the procedure well and there were no immediate complications noted.
[2022-03-03] MEDS ORDERED: BUPIVACAINE/PF (0.5%) 5 MG/1 ML 10 ML VIAL INFILTRATI ONE (18:12)
--- NOTE | 2022-03-03 20:44 | Procedure Note ---
OB Delivery Note - Delivery Date of Delivery: 03/03/22 Surgeon: MAIDA REYNAGA Estimated blood loss: 300cc - Vaginal Delivery presentation: vertex Delivery position: OA Intrapartum events: none Delivery monitor: external FHT, external uterine Route of delivery: Delivery placenta: spontaneous Delivery cord: 3 umbilical vessels Episiotomy: none Delivery laceration: none Anesthesia: none - A at 1 minute: 8 at 5 minutes: 9 Infant Gender: Female (Weight 8 pounds 7 ounces)
--- NOTE | 2022-03-03 20:44 | History and Physical Report ---
History of Present Illness Date of examination: 03/03/22 Date of admission: 03/03/22 12:04 Chief complaint: Leakage of fluid History of present illness: 27-year-old -0-3-2 at 39+3 weeks who presents to labor and delivery in active labor with leakage of fluid. The patient initiated her care in the first trimester of her however she had insufficient care with lapse of care from 26 to 35 weeks and then from 36 weeks at 39 weeks. Her GBS is negative. Past History Past Medical History: no pertinent history Past Surgical History: D&C Social history: single - Obstetrical History Expected Date of Delivery: 03/07/22 Actual Gestation: 39 Week(s) 3 Day(s) : 6 Para: 2 Hx # Term Pregnancies: 2 Number of Pregnancies: 0 Spontaneous Abortions: 2 Induced : 1 Number of Living Children: 2 Medications and Allergies Allergies Allergy/AdvReac Type Severity Reaction Status Date / Time No Known Allergies Allergy Verified 03/16/19 14:24 Home Medications Medication Instructions Recorded Confirmed Last Taken Type Ibuprofen [Motrin] 600 mg PO Q8H PRN #30 tablet 03/17/19 Unknown Rx oxyCODONE /ACETAMINOPHEN [Percocet 1 tab PO Q6HR PRN #20 tablet 03/17/19 Unknown Rx 5/325] Vit-Fe Fumar-FA [ 1 tab PO QDAY #90 tablet 05/01/21 Unknown Rx Vitamin] Active Meds: Active Medications Acetaminophen (Acetaminophen 325 Mg Tab) 650 mg PO Q4H PRN PRN Reason: Pain, Mild (1-3) Butorphanol Tartrate (Butorphanol 2 Mg/1 Ml Inj) 1 mg IV Q2H PRN PRN Reason: Pain, Moderate(4-6) LABOR PAIN Carboprost Tromethamine (Carboprost Tromethamine 250 Mcg/1 Ml Inj) 250 mcg IM ONCE PRN PRN Reason: Uterine Bleeding Ephedrine Sulfate (Ephedrine Sulfate 50 Mg/1 Ml Inj) 10 mg IV Q2M PRN PRN Reason: Hypotension Last Admin: 03/03/22 16:30 Dose: 10 mg Fentanyl (Fentanyl 100 Mcg/2 Ml Inj) 100 mcg IV Q2H PRN PRN Reason: Pain,Severe (7-10) LABOR PAIN Last Admin: 03/03/22 14:18 Dose: 100 mcg Oxytocin/Sodium Chloride (Pitocin/Ns 30 Unit/500ml) 30 units in 500 mls @ 4 mls/hr IV TITR LOBO; Protocol Last Admin: 03/03/22 19:44 Dose: 4 ml/hr, 4 mls/hr Oxytocin/Sodium Chloride (Pitocin/Ns 30 Unit/500ml) 30 units in 500 mls @ 2 mls/hr IV TITR LOBO; Protocol Lactated Ringer's (Lactated Ringers) 1,000 mls @ 125 mls/hr IV DIRECT LOBO Last Admin: 03/03/22 12:39 Dose: 125 mls/hr Oxytocin/Sodium Chloride (Pitocin/Ns 30 Unit/500ml) 30 units in 500 mls @ 40 mls/hr IV TITR LOBO; Protocol Fentanyl/Bupivacaine/Sodium Chlor (Fentanyl-Bupiv 2 Mcg/Ml-0.125%) 200 mcg in 100 mls @ 12 mls/hr EPIDURAL TITR LOBO; Protocol Last Admin: 03/03/22 17:15 Dose: 12 mls/hr Loperamide HCl (Loperamide 2 Mg Cap) 2 mg PO ONCE PRN PRN Reason: give with Hemabate Methylergonovine Maleate (Methylergonovine Maleate 0.2 Mg/Ml Vial) 0.2 mg IM ONCE PRN PRN Reason: Uterine Bleeding Mineral Oil (Mineral Oil 30 Ml Oral Liqd) 30 ml PO QHS PRN PRN Reason: Constipation Misoprostol (Misoprostol 200 Mcg Tab) 800 mcg CA ONCE PRN PRN Reason: Uterine Bleeding Naloxone HCl (Naloxone 0.4 Mg/1 Ml Inj) 0.2 mg IV Q5MIN PRN PRN Reason: Respiratory sedation Ondansetron HCl (Ondansetron 4 Mg/2 Ml Inj) 4 mg IV Q8H PRN PRN Reason: Nausea And Vomiting Last Admin: 03/03/22 14:18 Dose: 4 mg Oxytocin (Oxytocin 10 Unit/1 Ml Inj) 10 unit IM ONCE PRN PRN Reason: Uterine Bleeding Terbutaline Sulfate (Terbutaline 1 Mg/1 Ml Inj) 0.25 mg SUB-Q ONCE PRN PRN Reason: Hyperstimulation/Hypertonicity Review of Systems All systems: negative Genitourinary: leakage of fluid, contractions - Vital Signs Vital signs: Vital Signs Pulse Pulse Ox 113 H 98 03/03/22 10:32 03/03/22 10:32 Temp Pulse Resp BP Pulse Ox 98.4 F 112 H 141/67 99 03/03/22 17:15 03/03/22 20:39 03/03/22 20:37 03/03/22 20:39 - Physical Exam Breasts: Positive: deferred Cardiovascular: Regular rate Lungs: Positive: Clear to auscultation Abdomen: Positive: normal appearance Results Result Diagrams: 03/03/22 11:15 Abnormal lab results 03/03/22 Range/Units 11:15 Randall % (Auto) 8.0 H (0.0-7.3) % Seg Neutrophils % 72.1 H (40.0-70.0) % All other labs normal. Assessment and Plan - Patient Problems (1) Spontaneous rupture of amniotic membranes Current Visit: Yes Status: Acute Plan to address problem: Admit to labor and delivery
[2022-03-03] MEDS ORDERED: PROMETHAZINE 25 MG TAB PO PRN (20:45)
[2022-03-03] MEDS ORDERED: LANOLIN/ZINC/DIMETHICONE (LANSINOH) 7 GM TP PRN (20:45)
[2022-03-03] MEDS ORDERED: WITCH HAZEL/ GLYCERIN PAD TP PRN (20:45)
[2022-03-03] MEDS ORDERED: PROMETHAZINE 25 MG RECT SUPP PR PRN (20:45)
[2022-03-03] MEDS ORDERED: HYDROcodone/ACETAMINOPHEN 5-325 MG TAB PO PRN (20:45)
[2022-03-03] MEDS ORDERED: diphenhydrAMINE 25 MG CAP PO PRN (20:45)
[2022-03-03] MEDS ORDERED: MAGNESIUM HYDROXIDE (MOM) ORAL LIQD UDC PO PRN (20:45)
[2022-03-04] MEDS ORDERED: SODIUM CHLORIDE 0.9% 500 ML 500 ML ONE (00:35)
[2022-03-04] MEDS: IBUPROFEN 800 MG TAB PO SCH ×2 (00:47→14:56)
[2022-03-04 02:48] LABS: Amphetamine Screen,Urine PRESUMPTIVE NEGATIVE; Benzodiazepines Screen,Urine PRESUMPTIVE NEGATIVE; Cannabinoid Screen,Urine PRESUMPTIVE NEGATIVE; Cocaine Screen,Urine PRESUMPTIVE NEGATIVE; Methadone Screen,Urine PRESUMPTIVE NEGATIVE; Opiate Screen,Urine PRESUMPTIVE NEGATIVE
[2022-03-04] MEDS ORDERED: SODIUM CHLORIDE 0.9% 500 ML 500 ML IV SCH (05:00)
[2022-03-04 10:04] LABS: Hematocrit 29.3 % (30.3-42.9); Hemoglobin 9.6 gm/dl (10.1-14.3)
--- NOTE | 2022-03-04 10:52 | Progress Note ---
Assessment and Plan - Patient Problems (1) Spontaneous rupture of amniotic membranes Current Visit: Yes Status: Acute Plan to address problem: Patient doing well Discharge home Subjective - Subjective Date of service: 03/04/22 Interval history: Patient doing well. She reports her lochia is minimal. Her pain is well controlled. Patient reports: appetite normal, voiding normally, pain well controlled : doing well Objective - Vital Signs Latest vital signs: Vital Signs Temp Pulse Resp BP Pulse Ox Pulse Ox 03/04/22 08:00 98 03/04/22 07:28 97.9 F 86 16 143/88 97 03/04/22 03:15 100.1 F H 112 H 20 122/61 96 03/04/22 02:28 98.1 F 03/04/22 00:20 97 03/04/22 00:10 16 03/03/22 23:42 102.6 F H 98 H 18 146/71 99 03/03/22 23:14 97 H 98 03/03/22 23:09 91 H 99 03/03/22 23:07 93 H 150/73 03/03/22 23:06 93 H 162/82 03/03/22 23:04 84 98 03/03/22 22:59 91 H 98 03/03/22 22:57 90 160/80 03/03/22 22:54 90 99 03/03/22 22:49 107 H 98 03/03/22 22:44 105 H 100 03/03/22 22:39 90 97 03/03/22 22:38 92 H 147/69 03/03/22 22:37 101 H 85 03/03/22 22:34 101 H 99 03/03/22 22:29 94 H 98 03/03/22 22:24 98 H 99 03/03/22 22:19 103 H 99 03/03/22 22:17 106 H 140/93 03/03/22 22:14 108 H 99 03/03/22 22:09 93 H 98 03/03/22 22:04 96 H 98 03/03/22 21:59 94 H 99 03/03/22 21:57 93 H 140/72 03/03/22 21:54 103 H 99 03/03/22 21:49 100 H 98 03/03/22 21:44 100 H 99 03/03/22 21:39 109 H 98 03/03/22 21:37 110 H 134/82 03/03/22 21:34 105 H 96 03/03/22 21:29 111 H 98 03/03/22 21:24 114 H 98 03/03/22 21:19 116 H 98 03/03/22 21:17 116 H 113/68 89 03/03/22 21:14 109 H 98 03/03/22 21:09 104 H 100 03/03/22 21:04 113 H 97 03/03/22 20:59 117 H 99 03/03/22 20:57 108 H 123/80 03/03/22 20:54 115 H 99 03/03/22 20:49 111 H 99 03/03/22 20:44 117 H 100 03/03/22 20:39 112 H 99 03/03/22 20:37 114 H 141/67 03/03/22 20:34 106 H 99 03/03/22 20:29 145 H 99 03/03/22 20:24 139 H 100 03/03/22 20:19 129 H 100 03/03/22 20:17 120 H 168/82 03/03/22 20:14 124 H 100 03/03/22 20:09 119 H 100 03/03/22 20:04 99 H 100 03/03/22 19:59 110 H 100 03/03/22 19:54 112 H 100 03/03/22 19:49 108 H 100 03/03/22 19:44 103 H 100 03/03/22 19:39 104 H 100 03/03/22 19:34 94 H 100 03/03/22 19:29 104 H 100 03/03/22 19:24 101 H 100 03/03/22 19:19 103 H 100 03/03/22 19:15 107 H 120/62 03/03/22 19:14 110 H 100 03/03/22 19:13 100 H 123/68 03/03/22 19:11 108 H 122/63 03/03/22 19:09 112 H 113/57 100 03/03/22 19:04 107 H 100 03/03/22 19:03 103 H 124/65 03/03/22 19:01 109 H 116/62 03/03/22 18:59 104 H 115/59 100 03/03/22 18:57 109 H 115/67 03/03/22 18:55 101 H 106/61 03/03/22 18:54 103 H 100 03/03/22 18:53 113 H 134/60 03/03/22 18:51 100 H 115/60 03/03/22 18:49 106 H 110/55 95 03/03/22 18:47 95 H 134/73 03/03/22 18:45 93 H 129/68 03/03/22 18:44 100 H 98 03/03/22 18:43 100 H 132/73 03/03/22 18:41 98 H 140/82 03/03/22 18:39 98 H 135/73 98 03/03/22 18:37 100 H 132/72 03/03/22 18:35 100 H 129/68 03/03/22 18:34 99 H 99 03/03/22 18:33 100 H 128/65 03/03/22 18:31 103 H 124/64 03/03/22 18:29 98 H 129/68 98 03/03/22 18:27 95 H 132/73 03/03/22 18:25 95 H 134/73 03/03/22 18:24 97 H 99 03/03/22 18:23 92 H 133/74 03/03/22 18:21 101 H 126/75 03/03/22 18:19 97 H 125/74 98 03/03/22 18:14 102 H 97 03/03/22 18:09 101 H 100 03/03/22 18:04 114 H 99 03/03/22 18:03 101 H 133/75 03/03/22 17:59 103 H 100 03/03/22 17:54 100 H 99 03/03/22 17:50 92 H 76 L 03/03/22 17:49 92 H 99 03/03/22 17:48 95 H 143/83 03/03/22 17:44 93 H 99 03/03/22 17:39 95 H 99 03/03/22 17:34 95 H 141/82 99 03/03/22 17:29 103 H 100 03/03/22 17:24 99 H 99 03/03/22 17:19 99 H 98 03/03/22 17:17 95 H 133/78 03/03/22 17:15 98.4 F 03/03/22 17:14 97 H 99 03/03/22 17:11 100 H 136/74 03/03/22 17:09 93 H 99 03/03/22 17:08 100 H 132/78 03/03/22 17:04 103 H 99 03/03/22 17:01 102 H 110/59 03/03/22 16:59 104 H 120/64 98 03/03/22 16:54 107 H 98 03/03/22 16:52 101 H 118/67 03/03/22 16:49 103 H 97 03/03/22 16:46 102 H 116/65 03/03/22 16:44 108 H 97 03/03/22 16:41 103 H 120/71 03/03/22 16:39 103 H 98 03/03/22 16:37 107 H 130/78 03/03/22 16:34 106 H 99 03/03/22 16:31 96 H 130/72 03/03/22 16:29 113 H 117/67 98 03/03/22 16:27 100 H 116/63 03/03/22 16:25 103 H 125/70 03/03/22 16:24 104 H 99 03/03/22 16:23 102 H 127/73 03/03/22 16:21 102 H 130/72 03/03/22 16:19 109 H 124/69 98 03/03/22 16:17 100 H 137/71 03/03/22 16:16 98.4 F 03/03/22 16:15 104 H 145/86 03/03/22 16:14 117 H 99 03/03/22 16:13 100 H 141/80 03/03/22 16:09 98 H 99 03/03/22 16:04 102 H 99 03/03/22 15:59 98 H 98 03/03/22 15:53 103 H 99 03/03/22 15:48 70 99 03/03/22 15:46 100 H 157/87 03/03/22 15:43 101 H 99 03/03/22 15:38 98 H 98 03/03/22 15:36 96 H 153/91 03/03/22 15:33 108 H 99 03/03/22 15:28 102 H 99 03/03/22 15:23 102 H 97 03/03/22 15:18 102 H 98 03/03/22 15:13 103 H 97 03/03/22 15:08 101 H 98 03/03/22 15:05 98.1 F 03/03/22 15:03 101 H 97 03/03/22 14:58 100 H 97 03/03/22 14:53 99 H 98 03/03/22 14:48 107 H 98 03/03/22 14:43 107 H 98 03/03/22 14:38 111 H 99 03/03/22 14:36 102 H 133/88 03/03/22 14:33 106 H 99 03/03/22 14:28 104 H 99 03/03/22 14:19 98.4 F 03/03/22 14:17 103 H 98 03/03/22 14:12 110 H 99 03/03/22 14:07 107 H 99 03/03/22 14:02 116 H 98 03/03/22 13:57 101 H 99 03/03/22 13:52 102 H 99 03/03/22 13:47 101 H 98 03/03/22 13:42 97 H 98 03/03/22 13:37 104 H 145/86 98 03/03/22 13:32 102 H 98 03/03/22 13:27 101 H 98 03/03/22 13:22 101 H 98 03/03/22 13:17 98 H 97 03/03/22 13:12 99 H 98 03/03/22 13:07 98.0 F 103 H 99 03/03/22 13:02 104 H 99 03/03/22 12:57 111 H 99 03/03/22 12:52 99 H 98 03/03/22 12:47 105 H 99 03/03/22 12:42 101 H 97 03/03/22 12:37 104 H 99 03/03/22 12:36 103 H 137/89 03/03/22 12:32 105 H 98 03/03/22 12:27 101 H 99 03/03/22 12:22 100 H 100 03/03/22 12:17 102 H 97 03/03/22 12:12 107 H 98 03/03/22 12:07 103 H 97 03/03/22 12:05 98.4 F 03/03/22 12:02 105 H 98 03/03/22 11:57 107 H 97 03/03/22 11:52 111 H 99 03/03/22 11:47 107 H 99 03/03/22 11:42 103 H 97 03/03/22 11:37 106 H 99 03/03/22 11:35 104 H 139/89 03/03/22 11:32 108 H 99 03/03/22 11:27 105 H 97 03/03/22 11:22 105 H 98 03/03/22 11:17 109 H 98 03/03/22 11:12 103 H 98 03/03/22 11:07 110 H 98 03/03/22 11:02 113 H 98 03/03/22 11:00 98.1 F 03/03/22 10:57 110 H 98 Intake and Output 03/03/22 03/04/22 03/04/22 22:59 06:59 14:59 Intake Total 36.267 600 Output Total 500 1300 Balance -463.733 -700 Intake: IV 36.267 PITOCin/NS 30 UNIT/500ML 28.267 30 units In 500 ml @ 4 mls/hr IV TITR LOBO Rx#: [id number] PITOCin/NS 30 UNIT/500ML 8 30 units In 500 ml @ 40 mls/hr IV TITR LOBO Rx#: [id number] Oral 360 Intake, Free Water 240 Output: Urine 500 1300 Indwelling Catheter 500 Void 1300 Other: Total, Intake Amount 360 Total, Output Amount 500 400 Estimated Blood Loss 300 - Exam Uterus: Present: normal, firm - Labs Labs: Abnormal lab results 03/03/22 03/04/22 Range/Units 11:15 09:21 Hgb 9.6 L (10.1-14.3) gm/dl Hct 29.3 L (30.3-42.9) % [place] % (Auto) 8.0 H (0.0-7.3) % Seg Neutrophils % 72.1 H (40.0-70.0) %
--- NOTE | 2022-03-04 10:53 | Discharge Summary ---
Providers - Providers Date of Admission: 03/03/22 12:04 Date of discharge: 03/04/22 Attending physician: MAIDA REYNAGA Primary care physician: MAIDA REYNAGA Hospitalization Reason for admission: active labor, rupture of membranes Delivery: Discharge diagnosis: IUP at term delivered Hospital course: Patient was admitted in active labor with spontaneous rupture membranes. She had a successful vaginal delivery. Her course was uneventful. Condition at discharge: Good Disposition: 01 HOME / SELF CARE / HOMELESS - Discharge Diagnoses (1) Spontaneous rupture of amniotic membranes Status: Acute Plan - Discharge Medications Prescriptions: Ibuprofen [Motrin] 800 mg PO Q8HR PRN #30 tablet PRN Reason: Pain , Severe (7-10) HYDROcodone/APAP 5-325 [[place] 5/325] 1 each PO Q6HR PRN #15 tablet PRN Reason: Pain - Provider Discharge Summary Activity: no sex for 6 weeks, no heavy lifting 4 weeks, no strenuous exercise Diet: routine Instructions: routine Additional instructions: [] Smoking cessation referral if applicable(refer to patient education folder for contact #) [] Refer to [facility] Booklet Call your doctor immediately for: * Fever > 100.5 * Heavy vaginal bleeding ( >1 pad per hour) * Severe persistent headache * Shortness of breath * Reddened, hot, painful area to leg or breast * Schedule visit in 4 weeks - Follow up plan Follow up: MAIDA REYNAGA MD [Primary Care Provider] - 7 Days
[2022-03-04 19:05] LABS: Color,Urine Straw (Yellow)
[2022-03-04 19:17] LABS: Bacteria,Urine 1+ /HPF (Negative); Mucus,Urine FEW /HPF
[2022-03-04 19:18] LABS: RBC,Urine > 182.0 /HPF (0.0-6.0)
[2022-03-05] MEDS: IBUPROFEN 800 MG TAB PO SCH ×3 (00:39→12:08)
[2022-03-05] MEDS ORDERED: TETANUS,DIPH,PERTUSS(ACELL) VACCINE 0.5 ML SYRINGE IM ONE (06:00)
[2022-03-05 09:05] VITALS: BP 146/93
== END 2022-03-05 15:07 | disposition home or self-care (01) | DRG 775 ==
LOC: TRG 10:11 → LD 10:14 → TRG 12:16 → OB 03-04 00:11
PROVIDERS: ADMIT Obstetrics & Gynecology; ATTEND Obstetrics & Gynecology
PROC: 10E0XZZ Delivery of Products of Conception, External Approach (ICD-10-PCS; principal; 2022-03-03)
PROC: 3E0R3BZ Introduction of Anesthetic Agent into Spinal Canal, Percutaneous Approach (ICD-10-PCS; 2022-03-03)
PROC: 00HU33Z Insertion of Infusion Device into Spinal Canal, Percutaneous Approach (ICD-10-PCS; 2022-03-03)
DX: O80 Encounter for full-term uncomplicated delivery (principal); O42.92 Full-term premature rupture of membranes, unspecified as to length of time between rupture and onset of labor; Z3A.39 39 weeks gestation of pregnancy; Z37.0 Single live birth; Z20.822 Contact with and (suspected) exposure to COVID-19
CPT/HCPCS: 36415; 80307; 81001; 85014; 85018; 85025; 86592; 86850; 86900; 86901; 90715; G0378; J3490; J0690; J2405; J2590; J3010; J7040; J7120; U0003